=== PATIENT | female | born 1955 | race Caucasian/White ===

== ENCOUNTER → 2020-08-06 | Day surgery (SDC) | payer MEDICARE, BC ==
[~2020-08-06] MED LIST: Midazolam 1 MG/ML 2 ML SDV ONE; Propofol 200 MG/20 ML SDV ONE; Sodium Chloride 0.9% 1,000 ML IV SCH; fentaNYL 100 MCG/2 ML SDV ONE
== END ==
LOC: JP.SDS 06:31
PROVIDERS: ATTEND Surgery
DX: Z12.11 Encounter for screening for malignant neoplasm of colon (principal); Z53.09 Procedure and treatment not carried out because of other contraindication; I10 Essential (primary) hypertension; R51.9 Headache, unspecified
CPT/HCPCS: J2250; J2704; J3010; J7030

== ENCOUNTER 2021-08-26 07:23 | Day surgery (SDC) | payer MEDICARE, BC ==
[~2021-08-26 07:23] MED LIST changes: -Sodium Chloride 0.9% 1,000 ML IV SCH
[2021-08-26] MEDS ORDERED: Sodium Chloride 0.9% 1,000 ML IV SCH (07:30)
== END 2021-08-26 10:58 | disposition home or self-care (01) ==
LOC: JP.SDS 07:23
PROVIDERS: ATTEND Surgery
DX: Z12.11 Encounter for screening for malignant neoplasm of colon (principal); D12.2 Benign neoplasm of ascending colon; K57.30 Diverticulosis of large intestine without perforation or abscess without bleeding; I10 Essential (primary) hypertension; F17.210 Nicotine dependence, cigarettes, uncomplicated; E03.9 Hypothyroidism, unspecified; E66.9 Obesity, unspecified
CPT/HCPCS: 88305; J2250; J2704; J3010; J7030

== ENCOUNTER 2021-09-04 23:23 | Emergency (ER) | payer MEDICARE, BC | END 2021-09-05 01:10 | disposition home or self-care (01) | LOC: JP.ED 23:23 | DX: E03.9 Hypothyroidism, unspecified (principal); R42 Dizziness and giddiness; E78.00 Pure hypercholesterolemia, unspecified; I10 Essential (primary) hypertension; E66.9 Obesity, unspecified; F17.210 Nicotine dependence, cigarettes, uncomplicated; Z68.34 Body mass index [BMI] 34.0-34.9, adult; Z91.048 Other nonmedicinal substance allergy status; Z79.899 Other long term (current) drug therapy | CPT/HCPCS: 36415; 70450; 80053; 84439; 84443; 84484; 85025; 85651; 86140; 93005; 99283; 99284-25 ==

== ENCOUNTER 2021-10-02 22:11 | Emergency (ER) | payer MEDICARE, BC ==
[2021-10-02] MEDS ORDERED: Potassium Chloride 20 MEQ Tab.ER PO ONE (23:55)
[2021-10-02] MEDS ORDERED: Meclizine 25 MG Tab PO ONE (23:58)
[2021-10-03] MEDS ORDERED: Ondansetron 4 MG Tab.DIS PO ONE (00:15)
== END 2021-10-03 00:21 | disposition home or self-care (01) ==
LOC: JP.ED 22:11
DX: H81.10 Benign paroxysmal vertigo, unspecified ear (principal); E87.6 Hypokalemia; E78.00 Pure hypercholesterolemia, unspecified; I10 Essential (primary) hypertension; E03.9 Hypothyroidism, unspecified; E66.9 Obesity, unspecified; Z68.31 Body mass index [BMI] 31.0-31.9, adult; Z79.899 Other long term (current) drug therapy; Z91.048 Other nonmedicinal substance allergy status; Z72.0 Tobacco use
CPT/HCPCS: 36415; 80053; 84443; 85025; 85651; 86140; 99282; 99284; A9270-GY; Q0162

== ENCOUNTER 2021-10-16 12:13 | Emergency (ER) | payer MEDICARE, BC | END 2021-10-16 13:00 | disposition home or self-care (01) | LOC: JP.ED 12:13 | DX: H81.10 Benign paroxysmal vertigo, unspecified ear (principal); I10 Essential (primary) hypertension; E03.9 Hypothyroidism, unspecified; Z91.048 Other nonmedicinal substance allergy status | CPT/HCPCS: 99283 ==

== ENCOUNTER 2021-10-27 18:46 | Emergency (ER) | payer MEDICARE, BC ==
[2021-10-27] MEDS ORDERED: Potassium Chloride 20 MEQ Tab.ER PO ONE (20:02)
[2021-10-27] MEDS ORDERED: Aluminum Hydroxide/Magnesium Hydroxide/Simethicone Susp 30 ML Cup PO STA (21:07)
== END 2021-10-27 22:15 | disposition home or self-care (01) ==
LOC: JP.ED 18:46
DX: R42 Dizziness and giddiness (principal); E87.79 Other fluid overload; F41.9 Anxiety disorder, unspecified; E87.1 Hypo-osmolality and hyponatremia; E87.6 Hypokalemia; E78.00 Pure hypercholesterolemia, unspecified; I10 Essential (primary) hypertension; E03.9 Hypothyroidism, unspecified; E66.9 Obesity, unspecified; Z68.30 Body mass index [BMI] 30.0-30.9, adult; Z91.048 Other nonmedicinal substance allergy status; Z79.899 Other long term (current) drug therapy; Z72.0 Tobacco use
CPT/HCPCS: 36415; 72125; 80053; 81001; 84300; 84443; 85025; 85651; 86140; 99283; 99284-25; A9270-GY

== ENCOUNTER 2021-11-07 19:37 | Emergency (ER) | payer MEDICARE, BC | END 2021-11-07 20:56 | disposition left against medical advice (07) | LOC: JP.ED 19:37 | DX: F41.9 Anxiety disorder, unspecified (principal); Z53.21 Procedure and treatment not carried out due to patient leaving prior to being seen by health care provider ==